=== PATIENT | male | born 1975 ===

== ENCOUNTER 2018-08-29 13:09 | Emergency (ER) | payer OTHER ==
[2018-08-29 13:27] VITALS: RESP 16; O2SAT 98
--- NOTE | 2018-08-29 15:27 | ED PDOC ---
Lower Extremity Pain/Injury Time Seen by Provider: 08/29/18 14:53 Chief Complaint (Nursing): Lower Extremity Problem/Injury Chief Complaint (Provider): Lower Extremity Problem/Injury History Per: Patient History/Exam Limitations: no limitations Onset/Duration Of Symptoms: Days (x1 month ago) Additional Complaint(s): Miguel Ángel Muller is a 43 year old male with no past medical history, who presents to the emergency department complaining of right leg pain, onset x2 weeks. Patient states he started to have anterior knee pain about x1 month ago and x2 weeks ago the pain went into both his knees. Patient states he has noticed swelling radiate into the lower part of his legs. He states he has not taken any medications for the pain. Patient denies any recent travel, trauma, long distance car rides, fever, chills, night sweats, shortness of breath, chest pain, HTN, HLD, diabetes. 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 PMD: No provider Past Medical History Reviewed: Historical Data, Nursing Documentation, Vital Signs Vital Signs: Last Vital Signs Temp 98.0 F 08/29/18 13:23 Pulse 79 08/29/18 13:23 Resp 16 08/29/18 13:23 BP 163/90 H 08/29/18 13:23 Pulse Ox 98 08/29/18 13:23 - Medical History PMH: Denies: Diabetes, HTN, Hyperlipidemia - Family History Family History: States: Unknown Family Hx - Immunization History Hx Tetanus Toxoid Vaccination: No Hx Influenza Vaccination: No Hx Pneumococcal Vaccination: No - Home Medications Home Medications: Ambulatory Orders Medication Instructions Recorded RX: Ibuprofen [Motrin Tab] 600 mg PO Q6 PRN 5 Days tab 08/29/18 - Allergies Allergies/Adverse Reactions: Allergies Allergy/AdvReac Type Severity Reaction Status Date / Time No Known Allergies Allergy Verified 08/29/18 13:23 Review of Systems ROS Statement: Except As Marked, All Systems Reviewed And Found Negative Constitutional: Negative for: Fever, Chills, Sweats Cardiovascular: Negative for: Chest Pain, Paroxysmal Noc. Dyspnea Physical Exam - Reviewed Nursing Documentation Reviewed: Yes Vital Signs Reviewed: Yes - Physical Exam Appears: Positive for: No Acute Distress Head Exam: Positive for: ATRAUMATIC, NORMOCEPHALIC Cardiovascular/Chest: Positive for: Regular Rate, Rhythm. Negative for: Murmur Respiratory: Positive for: Normal Breath Sounds. Negative for: Respiratory Distress Pulses-Dorsalis Pedis (L): 2+ Pulses-Dorsalis Pedis (R): 2+ Extremity: Positive for: Swelling (Right knee: edema on the medial aspect of the right knee with mild pain on palpation of the anterior and medial knee; edema extending to the left ankle 1+; (-) erythema, ecchymosis), Other (decreased extension at the knee; normal flexion at the knee; normal extension and flexion at the ankle and hip) Neurologic/Psych: Positive for: Alert, Oriented (x3), Other (Sensation is equal bilaterally ) - ECG O2 Sat by Pulse Oximetry: 98 (RA) Pulse Ox Interpretation: Normal Medical Decision Making Medical Decision Making: Initial time: 15:19 Initial plan: --Ibuprofen 600 mg PO --Right knee x-ray --Right lower extremity doppler 16:04 knee x-ray FINDINGS: BONES: Bone alignment and mineralization are normal. There is no acute displaced fracture or bone destruction. JOINTS: Normal. No osteoarthritis. JOINT EFFUSION: There is a small suprapatellar joint effusion. OTHER FINDINGS: There is mild prepatellar soft tissue swelling. IMPRESSION: No acute fracture or dislocation. Small suprapatellar joint effusion and mild prepatellar soft tissue swelling. 16:15 US FINDINGS: COMMON FEMORAL VEIN: Unremarkable. SUPERFICIAL FEMORAL VEIN: Unremarkable. POPLITEAL VEIN: Unremarkable. POSTERIOR TIBIAL VEIN: Unremarkable. OTHER FINDINGS: None. IMPRESSION: No evidence of deep venous thrombosis in the right lower extremity. Scribe Attestation: Documented by Arnulfo Lozano, acting as a scribe for Brandy Serrato PA-C. Provider Scribe Attestation: All medical record entries made by the Scribe were at my direction and personally dictated by me. I have reviewed the chart and agree that the record accurately reflects my personal performance of the history, physical exam, medical decision making, and the department course for this patient. I have also personally directed, reviewed, and agree with the discharge instructions and disposition. Disposition - Clinical Impression Clinical Impression: Effusion, right knee - Patient ED Disposition Is Patient to be Admitted: No Counseled Patient/Family Regarding: Diagnosis, Need For Followup, Rx Given - Disposition Referrals: [facility] [place] [Outside] [facility] [place] [Outside] Disposition: Routine/Home Disposition Time: 17:30 Condition: STABLE Additional Instructions: Use SUSAN bandage and Ibuprofen for knee discomfort. F/u with orthopedist for further evaluation of possible ligament injury. Return to ER if you develop knee redness, fever or chills. Prescriptions: RX: Ibuprofen [Motrin Tab] 600 mg PO Q6 PRN 5 Days tab PRN Reason: Pain, Moderate (4-7) Forms: [employer] (Mosotho) Print Language: SLOVAK
--- NOTE | 2018-08-29 16:08 | RAD ---
Date of service: 08/29/2018 PROCEDURE: Right Knee Radiographs. HISTORY: knee pain and swelling x 2 weeks COMPARISON: None. FINDINGS: BONES: Bone alignment and mineralization are normal. There is no acute displaced fracture or bone destruction. JOINTS: Normal. No osteoarthritis. JOINT EFFUSION: There is a small suprapatellar joint effusion. OTHER FINDINGS: There is mild prepatellar soft tissue swelling. IMPRESSION: No acute fracture or dislocation. Small suprapatellar joint effusion and mild prepatellar soft tissue swelling.
--- NOTE | 2018-08-29 16:19 | US ---
Date of service: 08/29/2018 PROCEDURE: Right lower extremity venous duplex Doppler. HISTORY: Right calf and knee pain and swelling COMPARISON: None available. TECHNIQUE: Common femoral, superficial femoral, popliteal and posterior tibial veins were evaluated. Flow was assessed with color Doppler, compressibility, assessment of phasic flow and augmentation response. FINDINGS: COMMON FEMORAL VEIN: Unremarkable. SUPERFICIAL FEMORAL VEIN: Unremarkable. POPLITEAL VEIN: Unremarkable. POSTERIOR TIBIAL VEIN: Unremarkable. OTHER FINDINGS: None. IMPRESSION: No evidence of deep venous thrombosis in the right lower extremity.
[2018-08-29 18:02] VITALS: BP 138/88; PULSE 84; TEMP 98.6
== END 2018-08-29 18:01 | disposition home or self-care (01) ==
LOC: H.ER 13:09
DX: M25.461 Effusion, right knee (principal)